=== PATIENT | female | born 2005 | race African-American/Black ===

== ENCOUNTER 2024-08-16 12:12 | Emergency (ER) | payer OTHER, SELFPAY ==
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
[2024-08-16 12:49] VITALS: BP 97/64; PULSE 87; RESP 16; TEMP 36.3; O2SAT 99; BMI 21.0
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
[2024-08-16 14:51] VITALS: BP 97/64; PULSE 87; RESP 16; TEMP 36.3; O2SAT 99
== END 2024-08-16 14:52 | disposition home or self-care (01) ==
PROVIDERS: Emergency Provider Emergency Medicine Emergency Medical Services
DX: S06.0X0A Concussion without loss of consciousness, initial encounter (principal); S13.4XXA Sprain of ligaments of cervical spine, initial encounter; Y04.2XXA Assault by strike against or bumped into by another person, initial encounter; Y93.89 Activity, other specified; Y92.9 Unspecified place or not applicable; Y99.9 Unspecified external cause status
CPT/HCPCS: 70450; 72125; 99282; 99284